=== PATIENT | male | born 1995 | race African-American/Black ===

== ENCOUNTER 2019-04-26 18:58 | Observation (INO) ==
[2019-04-26] MEDS ORDERED: SODIUM CHLORIDE 0.9% 1,000 ML IV ONE (19:59)
[2019-04-26 20:43] LABS: Basophils # 0.1 10*3/uL (0.0-0.2); Basophils % 0.9 % (0.0-0.8); Eosinophils # 0.1 10*3/uL (0.0-0.87); Eosinophils % 0.9 % (0.00-10.9); Hematocrit 42.8 VOL% (42.0-52.0); Hemoglobin 13.2 GM/DL (14.0-18.0); Immature Granulocytes % 0.9 %; Immature Granulocytes Absolute 0.06 #; Lymphocytes # 1.2 10*3/uL (1.4-4.0); Lymphocytes % 17.3 % (21.2-54.2); Mean Corpuscular HGB Conc 30.8 GM/DL (32-36); Mean Corpuscular Volume 87.5 FL (87-102); Mean Platelet Volume 10.3 FL (9.6-12.0); Monocytes % 16.1 % (1.7-12.7); Neutrophils % 63.9 % (38.7-73.9); Platelet Count 266 T/CUMM (130-400); Red Blood Count 4.89 MC/CUMM (3.8-5.5); Red Cell Distribution Width 13.3 % (9.3-17.3)
[2019-04-26 20:59] LABS: Apearance,Urine Slightly Hazy (Clear); Barbiturates Screen,Urine Negative (Negative); Benzodiazepines Screen,Urine Negative (Negative); Bilirubin,Urine Negative (Negative); Blood, Urine Small mg/dL (Negative); Cannabinoid Screen,Urine Negative (Negative); Glucose,Urine (UA) Negative (Negative); Ketones,Urine Negative (Negative); Mucus,Urine Few /LPF (Occasional); Nitrite,Urine Negative (Negative); Opiate Screen,Urine Negative (Negative); Phencyclidine Screen,Urine Negative (Negative); Protein,Urine Negative; RBC,Urine 4 /HPF (0-4); Squamous Epithelial Cell,Urine Occasional /HPF (0-10); Urine Color Yellow (Yellow); Urine Specific Gravity 1.029 (1.001-1.035)
[2019-04-26 21:06] LABS: Band Neutrophils 3 % (0-10); Eosinophils 4 % (0-10); Lymphocytes 9 % (20-55); Segmented Neutrophils 73 % (50-85); Total Cells Counted 100
[2019-04-26 21:07] LABS: Anisocytosis Slight; Macrocytosis Slight; Platelet Estimate Normal; Reactive Lymphocytes Slight
[2019-04-26 21:12] LABS: Alanine Aminotransferase 63 U/L (16-61); Albumin 3.9 G/DL (3.4-5.0); Alkaline Phosphatase 69 U/L (45-117); Aspartate Amino Transferase 46 U/L (0-37); Blood Urea Nitrogen 15 MG/DL (7-18); Calcium 8.3 MG/DL (8.5-10.1); Estimated Glom Filtration Rate 121 ML/MIN; Glucose 81 MG/DL (74-106); Osmolality,Calculated 276.5 MOS/KG (273-304); Total Protein 8.3 G/DL (6.4-8.3); Troponin I < 0.015 NG/ML (0.00-0.045)
[2019-04-26] MEDS ORDERED: SODIUM CHLORIDE 0.9% 1,000 ML IV STA (22:05)
[2019-04-27] MEDS ORDERED: MORPHINE 4 MG/1 ML VIAL IV PRN (00:05)
[2019-04-27] MEDS ORDERED: ACETAMINOPHEN 325 MG TABLET PO PRN (00:05)
[2019-04-27] MEDS ORDERED: ONDANSETRON 4 MG/2 ML VIAL IV PRN (00:05)
[2019-04-27] MEDS ORDERED: INFLUENZA VIRUS VACCINE 0.5 ML SYRINGE IM ONE (00:25)
[2019-04-27] MEDS: SODIUM CHLORIDE 0.9% 1,000 ML IV SCH ×6 (01:46→09:54)
[2019-04-27 01:47] LABS: Basophils # 0.1 10*3/uL (0.0-0.2); Basophils % 0.8 % (0.0-0.8); Eosinophils % 0.3 % (0.00-10.9); Hematocrit 38.2 VOL% (42.0-52.0); Hemoglobin 11.8 GM/DL (14.0-18.0); Immature Granulocytes % 0.5 %; Immature Granulocytes Absolute 0.03 #; Lymphocytes # 1.4 10*3/uL (1.4-4.0); Lymphocytes % 21.3 % (21.2-54.2); Mean Corpuscular HGB Conc 30.9 GM/DL (32-36); Mean Platelet Volume 10.3 FL (9.6-12.0); Monocytes % 21.6 % (1.7-12.7); Neutrophils % 55.5 % (38.7-73.9); Platelet Count 238 T/CUMM (130-400); Red Blood Count 4.39 MC/CUMM (3.8-5.5); Red Cell Distribution Width 13.3 % (9.3-17.3); White Blood Count 6.4 T/CUMM (4-12)
[2019-04-27 02:06] LABS: Albumin 3.6 G/DL (3.4-5.0); Bilirubin,Total 1.3 MG/DL (0.2-1.0); Calcium 7.9 MG/DL (8.5-10.1); Osmolality,Calculated 279.3 MOS/KG (273-304); Total Protein 7.2 G/DL (6.4-8.3)
[2019-04-27 02:14] LABS: Hypochromasia 1+; Lymphocytes 22 % (20-55); Macrocytosis Slight; Platelet Estimate Adequate; Segmented Neutrophils 61 % (50-85); Total Cells Counted 100
[2019-04-27] MEDS ORDERED: ENOXAPARIN 40 MG/0.4 ML SYRINGE SUBCUT SCH (09:00)
[2019-04-27] MEDS ORDERED: PANTOPRAZOLE 40 MG TABLET PO SCH (09:00)
[2019-04-27 12:24] VITALS: BP 129/66
== END 2019-04-27 15:00 | disposition home or self-care (01) ==
LOC: N.EDINP 18:58 → N.ED 18:58 → SUATTDRO 23:25 → N.2E 23:43
PROVIDERS: ADMIT Internal Medicine Cardiovascular Disease; ATTEND Internal Medicine